=== PATIENT | male | born 1990 | race Caucasian/White ===

== ENCOUNTER 2017-08-15 13:29 | Emergency (ER) | payer BC, OTHER ==
[~2017-08-15] VITALS: Ht 172.7 cm; Wt 87.1 kg
[~2017-08-15 13:29] MED LIST: ALBU1AER9 INH; INSDGI SQ; NVLGI SQ
[2017-08-15 13:43] VITALS: TEMP 37; Ht 172.7 cm; Wt 87.1 kg
[2017-08-15] MEDS ORDERED: ONDANSETRON INJ 2 MG/ML 2 ML VIAL IV STA (13:51)
[2017-08-15] MEDS ORDERED: SODIUM CHLORIDE 0.9% 1000ML 1,000 ML IV STA ×2 (13:51→14:43)
--- NOTE | 2017-08-15 13:53 | EMERGENCY ROOM VISIT NOTE ---
History Report prepared by Danielibtrena: Kirsten Mckeon Under the Supervision of: Dr. Ezequiel Bourne M.D. First contact with patient: 13:46 Chief Complaint: VOMITING Stated Complaint: NAUSEA,VOMITING SINCE 4AM,TYPE 1 DIABETIC History of Present Illness The patient is a 27 year old male who presents to the Emergency Room with complaints of persistent vomiting since 0400 this morning. He states he cannot keep water down and is worried he may be dehydrated. The patient is a type 1 diabetic and states his sugars have been pretty stable recently. He also complains of diarrhea. There has been no blood in his stool. He has experienced no urinary symptoms. Source of History: patient Onset: 0 this morning Position: other (global) Timing: other (persistent) Associated Symptoms: + diarrhea, No hematochezia, No urinary symptoms Review of Systems See HPI for pertinent positives & negatives. A total of 10 systems reviewed and were otherwise negative. Past Medical & Surgical Medical Problems: (1) Diabetes mellitus type 1 Social History Smoking Status: Former Smoker Alcohol Use: none Drug Use: none Marital Status: single, in relationship Housing Status: lives with significant other Occupation Status: employed Current/Historical Medications Scheduled Insulin Lispro (Human) (Humalog Kwikpen), 70 UNITS SC DAILY Ondasetron Odt (Zofran Odt), 4-8 MG SL Q6H Allergies Coded Allergies: No Known Allergies (Unverified , 08/15/17) Physical Exam Vital Signs Date Time Temp Pulse Resp B/P (MAP) Pulse Ox O2 Delivery O2 Flow Rate FiO2 08/15/17 16:35 100 20 116/63 96 08/15/17 14:45 92 20 129/87 97 Room Air 08/15/17 13:43 37.0 100 20 134/81 98 Room Air Physical Exam GENERAL: Patient is nauseous appearing and in minimal distress. HEENT: No acute trauma, normocephalic atraumatic, mucous membranes are dry, no nasal congestion, no scleral icterus. NECK: No stridor, no adenopathy, no meningismus, trachea is midline. LUNGS: No dyspnea. Clear to auscultation and equal bilaterally. No wheeze, no rhonchi. HEART: Regular rate and rhythm. No murmurs, rubs, gallops appreciated. ABDOMEN: Soft, nontender, bowel sounds positive, no masses appreciated, no peritonitis. BACK: No midline tenderness, no CVA tenderness EXTREMITIES: Normal motion all extremities, no cyanosis, no edema. NEUROLOGIC: Alert and oriented, no acute motor or sensory deficits, no focal weakness, cranial nerves grossly intact. SKIN: No rash, no jaundice, no diaphoresis. Medical Decision & Procedures Laboratory Results 08/15/17 14:00 Red Blood Count 5.23, Mean Corpuscular Volume 88.0, Mean Corpuscular Hemoglobin 32.3, Mean Corpuscular Hemoglobin Concent 36.7, Mean Platelet Volume 9.3, Neutrophils (%) (Auto) 89.6, Lymphocytes (%) (Auto) 3.5, Monocytes (%) (Auto) 5.9, Eosinophils (%) (Auto) 0.8, Basophils (%) (Auto) 0.1, Neutrophils # (Auto) 6.35, Lymphocytes # (Auto) 0.25, Monocytes # (Auto) 0.42, Eosinophils # (Auto) 0.06, Basophils # (Auto) 0.01 08/15/17 14:00 Test 08/15/17 13:44 08/15/17 14:00 08/15/17 15:30 Bedside Glucose 168 mg/dl (70-99) White Blood Count 7.10 K/uL (4.8-10.8) Red Blood Count 5.23 M/uL (4.7-6.1) Hemoglobin 16.9 g/dL (14.0-18.0) Hematocrit 46.0 % (42-52) Mean Corpuscular Volume 88.0 fL (80-100) Mean Corpuscular Hemoglobin 32.3 pg (25-34) Mean Corpuscular Hemoglobin Concent 36.7 g/dl (32-36) Platelet Count 191 K/uL (130-400) Mean Platelet Volume 9.3 fL (7.4-10.4) Neutrophils (%) (Auto) 89.6 % Lymphocytes (%) (Auto) 3.5 % Monocytes (%) (Auto) 5.9 % Eosinophils (%) (Auto) 0.8 % Basophils (%) (Auto) 0.1 % Neutrophils # (Auto) 6.35 K/uL (1.4-6.5) Lymphocytes # (Auto) 0.25 K/uL (1.2-3.4) Monocytes # (Auto) 0.42 K/uL (0.11-0.59) Eosinophils # (Auto) 0.06 K/uL (0-0.5) Basophils # (Auto) 0.01 K/uL (0-0.2) RDW Standard Deviation 37.9 fL (36.4-46.3) RDW Coefficient of Variation 11.8 % (11.5-14.5) Immature Granulocyte % (Auto) 0.1 % Immature Granulocyte # (Auto) 0.01 K/uL (0.00-0.02) Anion Gap 7.0 mmol/L (3-11) Est Creatinine Clear Calc Drug Dose 130.0 ml/min Estimated GFR () 133.3 Estimated GFR (Non- 115.0 BUN/Creatinine Ratio 19.5 (10-20) Calcium Level 8.6 mg/dl (8.5-10.1) Total Bilirubin 2.1 mg/dl (0.2-1) Aspartate Amino Transf (AST/SGOT) 23 U/L (15-37) Alanine Aminotransferase (ALT/SGPT) 24 U/L (12-78) Alkaline Phosphatase 82 U/L (45-117) Total Protein 7.7 gm/dl (6.4-8.2) Albumin 4.0 gm/dl (3.4-5.0) Globulin 3.7 gm/dl (2.5-4.0) Albumin/Globulin Ratio 1.1 (0.9-2) Lipase 57 U/L (73-393) Urine Color YELLOW Urine Appearance CLEAR (CLEAR) Urine pH 5.0 (4.5-7.5) Urine Specific [place] 1.030 (1.000-1.030) Urine Protein NEG (NEG) Urine Glucose (UA) 2+ (NEG) Urine Ketones 1+ (NEG) Urine Occult Blood NEG (NEG) Urine Nitrite NEG (NEG) Urine Bilirubin NEG (NEG) Urine Urobilinogen NEG (NEG) Urine Leukocyte Esterase NEG (NEG) Urine WBC (Auto) 1-5 /hpf (0-5) Urine RBC (Auto) 0-4 /hpf (0-4) Urine Hyaline Casts (Auto) 1-5 /lpf (0-5) Urine Epithelial Cells (Auto) 10-20 /lpf (0-5) Urine Bacteria (Auto) NEG (NEG) Laboratory results as reviewed by me. Medications Administered Medications (Trade) Dose Ordered Sig/Pamela Route Start Time Stop Time Status Last Admin Dose Admin Sodium Chloride 1,000 ml @ 999 mls/hr Q1H1M STAT IV 08/15/17 13:51 08/15/17 14:51 DC 08/15/17 13:56 999 MLS/HR Ondansetron HCl (Zofran Inj) 4 mg NOW STAT IV 08/15/17 13:51 08/15/17 13:52 DC 08/15/17 14:03 4 MG Sodium Chloride 1,000 ml @ 999 mls/hr Q1H1M STAT IV 08/15/17 14:43 08/15/17 15:43 DC 08/15/17 14:44 999 MLS/HR Insulin Human Regular (novoLIN-R U-100 PER UNIT) 6 units NOW STAT IV 08/15/17 16:22 08/15/17 16:23 DC 08/15/17 16:22 6 UNITS Ondansetron HCl (ZOFRAN ODT 4MG Home Pack) 1 homepack UD ONCE PO 08/15/17 16:30 08/15/17 16:31 DC 08/15/17 16:30 1 HOMEPACK ED Course 1348: The patient was evaluated in room B4. A complete history and physical exam was performed. 1450: I reevaluated the patient. He states he hasn't been able to urinate yet. 1608: I reevaluated the patient. He feels much better and is comfortable going home. We will recheck his BSG. 1615: Nursing informed me the patients BSG is 258. 1622: I reevaluated the patient. He agrees with getting Insulin here in the ED. He will check his sugars at home. We discussed at length symptoms that would require a return to the ED and he states he feels comfortable monitoring his symptoms. Medical Decision Differential: Gastroenteritis, Food Borne, Esophageal Perforation, , Electrolyte Abnormality, Dehydration, Intraabdominal Infection, UTI/ Pyelonephritis, Bowel Obstruction, Biliary Pathology, amongst other pathology entertained. 27 yr old male with DMI arrives for evaluation of vomiting throughout day. Dehydrated but otherwise looking OK. Given 2 L NSS and feeling much better with this and IV zofran. Glucose creeping up as expected but he does not have evidence of DKA at this time. Ketones +1 in urine which I think is more dehydration than DKA. He is breathing comfortably and in no distress. Wishes DC which seems reasonable. Exam benign. Mild bili up which is likely from vomiting as no abdominal TTP. Consistent with gastroenteritis given diarrhea. Will monitor sugars very closely at home and aware of symptoms requiring RTED. Stable throughout ED stay. Significant other with him and aware as well. Medication Reconcilliation Current Medication List: was personally reviewed by me Blood Pressure Screening Patient's blood pressure: Normal blood pressure Blood pressure disposition: Did not require urgent referral Impression Primary Impression: Nausea, vomiting, and diarrhea Additional Impressions: Dehydration Hyperglycemia Scribe Attestation The scribe's documentation has been prepared under my direction and personally reviewed by me in its entirety. I confirm that the note above accurately reflects all work, treatment, procedures, and medical decision making performed by me. Departure Information Dispostion Home / Self-Care Prescriptions Ondasetron Odt (ZOFRAN ODT) 4 Mg Tab 4-8 MG SL Q6H for Nausea, #12 TAB Prov: Ezequiel Bourne M.D. 08/15/17 Referrals Dave Doyle III, M.D. (PCP) Patient Instructions ED Diet Vomiting Diarrhea, My [facility] Additional Instructions Monitor your sugars closely. If unable to control or other concerns return to ED for evaluation. Problem Qualifiers
[2017-08-15 14:09] LABS: BASO % 0.1 %; BASO ABS # 0.01 K/uL (0-0.2); EOS % 0.8 %; EOS ABS # 0.06 K/uL (0-0.5); HEMOGLOBIN 16.9 g/dL (14.0-18.0); IG# 0.01 K/uL (0.00-0.02); LYMPH % 3.5 %; LYMPH ABS # 0.25 K/uL (1.2-3.4); MEAN CORPUSCULAR HEMOGLOBIN 32.3 pg (25-34); MEAN CORPUSCULAR HGB CONC 36.7 g/dl (32-36); MEAN PLATELET VOLUME 9.3 fL (7.4-10.4); MONO % 5.9 %; MONO ABS # 0.42 K/uL (0.11-0.59); NEUT % 89.6 %; NEUT ABS # 6.35 K/uL (1.4-6.5); PLATELET COUNT 191 K/uL (130-400); RED CELL DISTRIBUTION WIDTH CV 11.8 % (11.5-14.5); RED CELL DISTRIBUTION WIDTH SD 37.9 fL (36.4-46.3)
[2017-08-15 14:33] LABS: CALCIUM 8.6 mg/dl (8.5-10.1); CREATININE 0.9 mg/dl (0.60-1.40); POTASSIUM 3.9 mmol/L (3.5-5.1)
[2017-08-15 14:36] LABS: TOTAL PROTEIN 7.7 gm/dl (6.4-8.2)
[2017-08-15] MEDS ORDERED: INSU100I2 SC (15:14)
[2017-08-15] MEDS ORDERED: NovoLIN-R INSULIN PER UNIT CHARGE IV STA (16:22)
[2017-08-15] MEDS ORDERED: ONDA4TAB10 SL (16:24)
[2017-08-15] MEDS ORDERED: ONDANSETRON HOME PACK 4MG OD TAB PO ONE (16:30)
[2017-08-15 16:35] VITALS: BP 116/63; PULSE 100; O2SAT 96
== END 2017-08-15 16:37 | disposition home or self-care (01) ==
LOC: C.EDB 13:32
DX: R11.2 Nausea with vomiting, unspecified (principal); R19.7 Diarrhea, unspecified; E86.0 Dehydration; E10.65 Type 1 diabetes mellitus with hyperglycemia; Z87.891 Personal history of nicotine dependence

== ENCOUNTER 2023-01-10 18:02 | Observation (INO) ==
[2023-01-10 18:55] LABS: Basophils # (auto) 0.02 K/uL (0-0.2); Basophils % (auto) 0.2 %; Eosinophils # (auto) 0.08 K/uL (0-0.50); Eosinophils % (auto) 0.9 %; Hematocrit (blood only) 44.6 % (42.0-52.0); Immature Granulocytes # (auto) 0.03 K/uL (0.01-0.20); Immature Granulocytes % (auto) 0.3 %; Lymphocytes # (auto) 0.96 K/uL (1.2-3.4); Mean Corpuscular Hemoglobin 31.6 pg (25.0-34.0); Mean Corpuscular Hgb Conc 35.9 g/dL (32.0-36.0); Mean Platelet Volume 8.7 fL (9.4-12.4); Monocytes # (auto) 0.42 K/uL (0.11-0.59); Monocytes % (auto) 4.8 %; Neutrophils # (auto) 7.22 K/uL (1.40-6.50); Neutrophils % (auto) 82.8 %; Platelet Count 240 K/uL (130-400); RDW Coefficient of Variation 11.7 % (11.5-14.5); RDW Standard Deviation 37.6 fL (36.4-46.3); Red Blood Count 5.07 M/uL (4.70-6.10); White Blood Count 8.73 K/ul (4.8-10.8)
[2023-01-10] MEDS ORDERED: SODIUM CHLORIDE 0.9% 1000ML 1,000 ML IV SCH (19:00)
[2023-01-10 19:09] LABS: Albumin Level 4.9 gm/dl (3.4-5.0); Bilirubin,Total 1.9 mg/dl (0.2-1.0); Calcium 9.8 mg/dl (8.6-10.3); Potassium 4.4 mmol/L (3.5-5.1)
[2023-01-10 19:15] LABS: Albumin Globulin Ratio 1.9 (0.9-2); BUN Creatinine Ratio 17.3 (10-20); Creatinine Clr Calc Pharmacy 149.2 ml/min; Est GFR (African American) 138.7 ml/min; Est GFR (Non-African American) 119.7 ml/min; Globulin 2.6 gm/dl (2.5-4.0); Total Protein 7.5 gm/dl (6.0-8.3)
[2023-01-10] MEDS ORDERED: ONDANSETRON INJ 2 MG/ML 2 ML VIAL IV STA (19:31)
--- NOTE | 2023-01-10 19:34 | Emergency Department Note ---
Impression & Plan Lower abdominal pain, Vomiting, Enteritis ED Provider Note NAME: JULIANO TURK AGE: 32 SEX: M : 1990 ARRIVES VIA: Walk-In INFORMANT: [Patient] ED PROVIDER(S): [Donato Torres MD] CHIEF COMPLAINT: Abdominal pain HISTORY OF PRESENT ILLNESS: The patient is a 32-year-old male who states that he felt fine yesterday. This morning after eating he began having some mid abdominal pain. He has had pain now for 9-1/2 hours. The pain has been constant and does move somewhat into the back. It is not really a one-sided pain. The patient has not had urinary difficulty, no diarrhea. He did vomit several times and his pain seems somewhat better since vomiting. There has been no bad food eaten, no sick contacts. He has not had a fever, cough or congestion. PMHx/PSHx: See Below SOCIAL HISTORY: See Below. PHYSICAL EXAM: GENERAL: Patient is in no acute distress. HEENT: No acute trauma, normocephalic atraumatic, mucous membranes moist, no nasal congestion. NECK: No stridor, no adenopathy, no meningismus, trachea is midline. LUNGS: Clear to auscultation bilaterally, no wheeze, no rhonchi, breath sounds equal. HEART: Without murmurs gallops or rubs, regular rate and rhythm. ABDOMEN: Soft, bowel sounds are somewhat hyperactive. He does have tenderness in the lower abdomen/pelvis bilaterally, slightly worse on the right. EXTREMITIES: No cyanosis or edema, full range of motion of all the joints without pain or difficulty, no signs for acute trauma. NEUROLOGIC: Oriented x 3, no acute motor or sensory deficits, no focal weakness. SKIN: No rash, no jaundice, no diaphoresis. Groin: Circumcised, no obvious hernia by my exam. DIFFERENTIAL DIAGNOSIS: Foodborne or viral illness, diverticulitis or appendicitis, bowel obstruction, UTI, renal colic, among others. EMERGENCY DEPARTMENT COURSE/PROCEDURES: Prior/Outside records reviewed: None. MEDICAL DECISION MAKING: There is no leukocytosis or concerning anemia. There is a normal platelet count. No renal failure or significant electrolyte abnormality. Bilirubin was elevated at 1.9. The patient carries a history of a higher bilirubin value and today's value is at baseline. No other worrisome liver enzyme elevation seen. No pancreatitis. Urinalysis showed some ketones, no infection. Abdominal and pelvis CT shows enteritis versus and/or a partial small bowel obstruction. No appendicitis or acute surgical process per CT imaging. On my exam, there was no peritonitis. The patient was not toxic or febrile. The patient was given IV Pepcid, IV Toradol, IV Zofran and IV saline. He is fairly comfortable. I did speak with general surgery, no emergent surgical intervention is required. Hospitalization and medical management was felt warranted for now. I did speak with the patient and case management, patient will be kept n.p.o. He will be reassessed throughout the evening and morning. Hopefully, he improves spontaneously. If things progress to a full bowel obstruction, an NG tube may be necessary. DISPOSITION: Patient's presentation and findings warrant a hospital stay. Past Med/Surg History Medical History Right upper extremity numbness Type 1 diabetes Diagnosed age 12 Surgical History S/P wisdom tooth extraction Family History Grandfather (Maternal) Myocardial infarction Grandfather (Paternal) Myocardial infarction Diabetes Grandmother (Maternal) Ovarian cancer Uncle Prostate cancer Diabetes Mother Depression Hypertension Kidney stones Fibromyalgia Sister Depression Father Hypertension Grandmother (Paternal) Diabetes Denies family history of Breast cancer Colorectal cancer Social History Smoking Status: Former smoker Tobacco Type: Cigarettes Age Started Using Tobacco: 14; Cigarettes Per Day: 1-2 A WEEK; Second Hand Exposure: Yes; Do You Dip or Chew Tobacco: No; Hx Alcohol Use: No Hx Substance Use: Yes Prescribed Medications: Marijuana Preferred Language: Occitan Communication Ability: Effective Visual Impairment: No Limitations Hearing Ability: Normal marital status: Single Current Living Situation: Other Current Living Situation Comment: W/GIRLFRIEND current occupational status: employed 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 [employer] Feels Safe at Home: Yes Childhood Exposure to Second-Hand Smoke: Yes Diet: regular Dental Care, Regularly: No Physical Activity Frequency: Does not Exercise Seatbelt Use: always Sunscreen Use: No Allergies Allergies Allergy/AdvReac Type Severity Reaction Status Date / Time No Known Allergies Allergy Verified 01/10/23 19:23 Home Meds Previous Rx's Medication Instructions Recorded acetone (urine) test (Ketone Urine #50 ea 04/02/20 Test strips) lancets 30 gauge (OneTouch Delica #100 ea 03/25/21 Lancets) One Touch Verio Glucometer #1 ea 10/15/21 insulin glargine 100 unit/mL (3 25 unit (0.25 mL) subcut BID #45 mL 05/20/22 mL) subcutaneous pen (Lantus Solostar U-100 Insulin) insulin lispro 100 unit/mL See Rx Instructions .Route 07/30/22 subcutaneous pen (Humalog KwikPen .COMPLEX #75 mL (U-100) Insulin) pen needle, diabetic 32 gauge x #100 ea 08/04/2207/01" (BD Ultra-Fine Micro Pen Needle) blood sugar diagnostic (OneTouch #300 strips 09/17/22 Verio test strips) Results & Data (ED) Vital Signs Vital Signs - 24 hr 01/10/23 18:05 01/10/23 21:45 Temperature 36.8 C Temperature Source Temporal Artery Scan Pulse Rate 80 70 Respiratory Rate 18 Respiratory Effort / Characteristics Non-Labored Respiratory Depth Normal Blood Pressure 146/90 H Blood Pressure Mean 108 Pulse Oximetry 98 Oxygen Delivery Method Room Air Sepsis Recent Fever Within 48 Hours No Sepsis New/Unexplained Change in Mental Status No Sepsis Action Taken by Nursing No Action Required Home Medications Current Medication List: was personally reviewed by me Laboratory Data Attestation: I reviewed the patient's lab results. 01/10/23 18:44 01/10/23 18:44 Lab Results 01/10/23 01/10/23 01/10/23 Range/Units 18:44 18:44 19:50 WBC 8.73 (4.8-10.8) K/ul RBC 5.07 (4.70-6.10) M/uL Hgb 16.0 (14.0-18.0) g/dl Hct 44.6 (42.0-52.0) % MCV 88.0 (80.0-100.0) fL MCH 31.6 (25.0-34.0) pg MCHC 35.9 (32.0-36.0) g/dL RDW Std Deviation 37.6 (36.4-46.3) fL RDW Coeff of Abby 11.7 (11.5-14.5) % Plt Count 240 (130-400) K/uL MPV 8.7 L (9.4-12.4) fL Immature Gran % (Auto) 0.3 % Neut % (Auto) 82.8 % Lymph % (Auto) 11.0 % [place] % (Auto) 4.8 % Eos % (Auto) 0.9 % Baso % (Auto) 0.2 % Neut # (Auto) 7.22 H (1.40-6.50) K/uL Lymph # (Auto) 0.96 L (1.2-3.4) K/uL [place] # (Auto) 0.42 (0.11-0.59) K/uL Eos # (Auto) 0.08 (0-0.50) K/uL Baso # (Auto) 0.02 (0-0.2) K/uL Immature Gran # (Auto) 0.03 (0.01-0.20) K/uL Sodium 139 (136-145) mmol/L Potassium 4.4 (3.5-5.1) mmol/L Chloride 103 (98-107) mmol/L Carbon Dioxide 30 (21-32) mmol/L Anion Gap 6 (3-11) BUN 13 (6-23) mg/dl Creatinine 0.75 (0.6-1.4) mg/dl Est Cr Clr Drug Dosing 149.2 ml/min Est GFR ( Amer) 138.7 ml/min Est GFR (Non-Af Amer) 119.7 ml/min BUN/Creatinine Ratio 17.3 (10-20) Glucose 65 L (70-99(Fasting)) mg/dl Calcium 9.8 (8.6-10.3) mg/dl Total Bilirubin 1.9 H (0.2-1.0) mg/dl AST 20 (13-39) U/L ALT 13 (7-52) U/L Alkaline Phosphatase 64 (34-104) U/L Total Protein 7.5 (6.0-8.3) gm/dl Albumin 4.9 (3.4-5.0) gm/dl Globulin 2.6 (2.5-4.0) gm/dl Albumin/Globulin Ratio 1.9 (0.9-2) Lipase 22 (11-82) U/L Urine Color Dark Yellow Urine Appearance Turbid A (Clear) Urine pH 7.5 (4.5-7.5) Ur Specific [place] 1.028 (1.000-1.030) Urine Protein Trace H (Negative) Urine Glucose (UA) Negative (Negative) Urine Ketones Trace H (Negative) Urine Blood Negative (Negative) Urine Nitrite Negative (Negative) Urine Bilirubin Negative (Negative) Urine Urobilinogen Negative (Negative) Ur Leukocyte Esterase Negative (Negative) Urine WBC (Auto) 1-5 (0-5) /hpf Urine RBC (Auto) 0-4 (0-4) /hpf U Hyaline Cast (Auto) 1-5 (0-5) /lpf U Epithel Cells (Auto) 10-20 H (0-5) /lpf Urine Bacteria (Auto) Negative (Negative) Ur Renal Epithelial Cell Not Reportable Administered Medications Sodium Chloride (Nss 1000ml) 500 mls @ 999 mls/hr IV .Q31M ONE Stop: 01/10/23 22:00 Last Admin: 01/10/23 21:42 Dose: 999 mls/hr Documented By: ESTHER Discontinued Medications Sodium Chloride (Nss 1000ml) 1,000 mls @ 999 mls/hr IV .Q1H1M YOHANNES Stop: 01/10/23 20:00 Last Infusion: 01/10/23 20:09 Dose: 0 mls/hr Documented By: Admin: 01/10/23 18:50 Dose: 999 mls/hr Documented By: GUILLE Famotidine (Pepcid 20mg Iv Push) 20 mg in 5 mls @ 2.5 mls/min IV NOW STA Stop: 01/10/23 21:32 Last Admin: 01/10/23 21:42 Dose: 2.5 mls/min Documented By: ESTHER Ioversol (Optiray 320 100ml) 93 ml IV ONCE ONE Stop: 01/10/23 20:11 Last Admin: 01/10/23 20:01 Dose: 93 ml Documented By: VALARIE Ketorolac Tromethamine (Ketorolac Tromethamine 15 Mg/Ml Vial) 15 mg IV NOW STA Stop: 01/10/23 21:32 Last Admin: 01/10/23 21:42 Dose: 15 mg Documented By: ESTHER Ondansetron HCl (Ondansetron Inj 2 Mg/Ml 2 Ml Vial) 4 mg IV NOW STA Stop: 01/10/23 19:32 Last Admin: 01/10/23 19:42 Dose: 4 mg Documented By: BCN Imaging Data Radiologist's Impression: Abdomen/Pelvis CT 01/10/23 19:31 Exam(s): CT ABDOMEN + PELVIS With Contrast IV Amt: 93 ml EXAM: CT Abdomen and Pelvis With Intravenous Contrast CLINICAL HISTORY: Reason for exam: low abd pain, vomiting. TECHNIQUE: Axial computed tomography images of the abdomen and pelvis with intravenous contrast. CTDI is 25.58 mGy and DLP is 1294.16 mGy-cm. Automated exposure control was utilized for the study. A dose lowering technique was utilized adhering to the principles of ALARA. CONTRAST: Patient received 93 ml [id number] of IV contrast COMPARISON: No relevant prior studies available. FINDINGS: Lung bases: Unremarkable. No mass. No consolidation. ABDOMEN: Liver: Unremarkable. No mass. Gallbladder and bile ducts: Unremarkable. No calcified stones. No ductal dilation. Pancreas: Unremarkable. No mass. No ductal dilation. Spleen: Unremarkable. No splenomegaly. Adrenals: Unremarkable. No mass. Kidneys and ureters: 11 mm RIGHT mid pole renal cyst. No hydronephrosis. Stomach and bowel: Mild fluid-filled small bowel distended up to 2.8 cm, concerning for mild enteritis/ileus. Early/partial small bowel destruction cannot be excluded, consider repeat exam if symptoms worsen or persist. PELVIS: Appendix: No findings to suggest acute appendicitis. Bladder: Unremarkable. No mass. Reproductive: Unremarkable as visualized. ABDOMEN and PELVIS: Intraperitoneal space: Unremarkable. No free air. No significant fluid collection. Bones/joints: No acute fracture. No dislocation. Soft tissues: Unremarkable. Vasculature: Unremarkable. No abdominal aortic aneurysm. Lymph nodes: Unremarkable. No enlarged lymph nodes. IMPRESSION: Mild fluid-filled small bowel distended up to 2.8 cm, concerning for mild enteritis/ileus. Early/partial small bowel destruction cannot be excluded, consider repeat exam if symptoms worsen or persist. Electronically signed by: Ha Cortez MD 01/10/23 21:15 PM Discharge Plan Visit Data Chief Complaint: Abdominal Pain Stated Complaint: ABDOMINAL PAIN ED Provider: Donato Torres Discharge Problem: Lower abdominal pain, Vomiting, Enteritis Patient Disposition: Admitted As Inpatient Condition: Good Forms Stand Alone Forms: My [facility] Prescriptions Prescriptions: No Action (DME) Ketone Urine Test Strip See Rx Instructions .ROUTE .MEDSUPPLY Qty: 50 5RF Rx Instructions: As directed (DME) lancets [OneTouch Delica Lancets] 30 gauge misc See Rx Instructions .Route Qty: 100 1RF Rx Instructions: test 3 times daily or as directed (DME) One Touch Verio Glucometer See Rx Instructions .Route .MEDSUPPLY Qty: 1 0RF Rx Instructions: Test 3 times daily insulin glargine [Lantus Solostar U-100 Insulin] 100 unit/mL (3 mL) insulin pen 25 unit subcut BID Qty: 45 1RF insulin lispro [Humalog KwikPen Insulin] 100 unit/mL insulin pen See Rx Instructions .ROUTE .COMPLEX MDD 70 U Qty: 75 1RF Dose Instruction: INJECT 70 UNITS (0.7 ML) SUBCUTANEOUSLY DAILY Rx Instructions: INJECT 70 UNITS (0.7 ML) SUBCUTANEOUSLY DAILY (Divided doses based on CHO Ratio and CF before meals) (DME) pen needle, diabetic [BD Ultra-Fine Micro Pen Needle] 32 gauge x 1/4" needle See Rx Instructions .Route Qty: 100 1RF Rx Instructions: USE TO ADMINISTER INSULIN 4 X DAILY OR DIRECTED (DME) OneTouch Verio test strips Strip See Rx Instructions .ROUTE .COMPLEX Qty: 300 12RF Dose Instruction: FOR TYPE I DIABETES TEST 3 TIMES PER DAY. Rx Instructions: FOR TYPE I DIABETES TEST 3 TIMES PER DAY. Referrals Referrals: Tonny Bell, [Primary Care Provider] -
[2023-01-10] MEDS ORDERED: OPTIRAY 320 100ml IV ONE (20:10)
[2023-01-10 20:18] LABS: Appearance Urine Turbid (Clear); Bacteria Urine Automated Negative (Negative); Bilirubin Urine Negative (Negative); Blood Urine Negative (Negative); Color Urine Dark Yellow; Glucose Urine UA Negative (Negative); Ketones Urine Trace (Negative); Leukocyte Esterase Urine Negative (Negative); Nitrite Urine Negative (Negative); RBC Urine Automated 0-4 /hpf (0-4); Specific Gravity Urine 1.028 (1.000-1.030); Urobilinogen Urine Negative (Negative); pH Urine 7.5 (4.5-7.5)
[2023-01-10 20:22] LABS: Protein Urine Trace (Negative)
--- NOTE | 2023-01-10 21:16 | CT Scan Report ---
Exam(s): CT ABDOMEN + PELVIS With Contrast IV Amt: 93 ml [id number] EXAM: CT Abdomen and Pelvis With Intravenous Contrast CLINICAL HISTORY: Reason for exam: low abd pain, vomiting. TECHNIQUE: Axial computed tomography images of the abdomen and pelvis with intravenous contrast. CTDI is 25.58 mGy and DLP is 1294.16 mGy-cm. Automated exposure control was utilized for the study. A dose lowering technique was utilized adhering to the principles of ALARA. CONTRAST: Patient received 93 ml [id number] of IV contrast COMPARISON: No relevant prior studies available. FINDINGS: Lung bases: Unremarkable. No mass. No consolidation. ABDOMEN: Liver: Unremarkable. No mass. Gallbladder and bile ducts: Unremarkable. No calcified stones. No ductal dilation. Pancreas: Unremarkable. No mass. No ductal dilation. Spleen: Unremarkable. No splenomegaly. Adrenals: Unremarkable. No mass. Kidneys and ureters: 11 mm RIGHT mid pole renal cyst. No hydronephrosis. Stomach and bowel: Mild fluid-filled small bowel distended up to 2.8 cm, concerning for mild enteritis/ileus. Early/partial small bowel destruction cannot be excluded, consider repeat exam if symptoms worsen or persist. PELVIS: Appendix: No findings to suggest acute appendicitis. Bladder: Unremarkable. No mass. Reproductive: Unremarkable as visualized. ABDOMEN and PELVIS: Intraperitoneal space: Unremarkable. No free air. No significant fluid collection. Bones/joints: No acute fracture. No dislocation. Soft tissues: Unremarkable. Vasculature: Unremarkable. No abdominal aortic aneurysm. Lymph nodes: Unremarkable. No enlarged lymph nodes. IMPRESSION: Mild fluid-filled small bowel distended up to 2.8 cm, concerning for mild enteritis/ileus. Early/partial small bowel destruction cannot be excluded, consider repeat exam if symptoms worsen or persist. Electronically signed by: Ha Cortez MD 01/10/23 21:15 PM
[2023-01-10] MEDS ORDERED: SODIUM CHLORIDE 0.9% 1000ML 500 ML IV ONE (21:30)
[2023-01-10] MEDS ORDERED: FAMOTIDINE 20MG IV PUSH 20 MG/5 ML SYR IV STA (21:31)
[2023-01-10] MEDS ORDERED: KETOROLAC TROMETHAMINE 15 MG/ML VIAL IV STA (21:31)
--- NOTE | 2023-01-10 22:10 | History & Physical Report ---
Date of Service January 10, 2023 Assessment & Plan (1) Lower abdominal pain: Plan: 32yo male with history of well controlled DM presenting with one day of abdominal pain and nausea. No prior abdominal surgeries. He is afebrile, HD stable and non-toxic in appearance. Labs are largely unremarkable to include normal WBC count of 8.73. Chronic elevation of Tbili=1.9 (near baseline) otherwise normal LFTs. CT of the abomen as above with possible SBO vs enteritis. -Admit to medical -Keep NPO -LR at 125mL/hr x 2 liters -Zofran PRN nausea -Morphine as needed for pain -Appreciate General Surgery assistance (2) Type 1 diabetes: Plan: Overall well controlled. Last HgbA1C from 11/14/21=6.9. Patient is compliant with Glargine 25u BID and ISS. -Decrease Glargine to 12u BID while NPO -Novolog sliding scale with CF 25, CR 5 -Goal blood sugar 110 - 140 Of note, patient states that he has an episodes 3-4 times monthly which he wakes up feeling nauseated and has to vomit. After he vomits he feels better and is able to go back to sleep. Uncertain if its related to specific type of food or timing of meals. ?GERD vs Gastroparesis to be considered History of Present Illness Chief Complaint: abdominal pain Primary Care Provider: DO Travis Madrid Teja is a 32yo male with well controlled DM-I presenting with abdominal pain. Patient woken this morning and developed fairly severe abdominal pain after having some cereal for breakfast. He had some nausea and non-bloody/non-bilious emesis as well which made his abdominal pain feel slightly better. The pain persisted throughout the day, coming intermittently. He passed some gas this morning but does not recall if he has passed gas since. He had a normal bowel movement this AM. Patient denies fever, chills, chest pain, cough, SOB. Denies diarrhea. Denies urinary complaints. No dietary changes. No sick contacts or contacts with similar symptoms. No additional complaints at this time. In the ER the patient is afebrile, HD stable, NAD. Resting comfortably. Abdominal pain slightly improved. He was evaluated by General Surgery for possible SBO. ER Course: Pepcid 20mg Toradol 15mg NSS x 1500mL Zofran Allergies Allergy/AdvReac Type Severity Reaction Status Date / Time No Known Allergies Allergy Verified 01/10/23 19:23 Home Medications Medication Instructions Recorded Confirmed Type acetone (urine) test (Ketone Urine #50 ea 04/02/20 09/15/22 Rx Test strips) lancets 30 gauge (OneTouch Delica #100 ea 03/25/21 09/15/22 Rx Lancets) One Touch Verio Glucometer #1 ea 10/15/21 09/15/22 Rx insulin glargine 100 unit/mL (3 25 unit (0.25 mL) subcut BID #45 mL 05/20/22 01/10/23 Rx mL) subcutaneous pen (Lantus Solostar U-100 Insulin) insulin lispro 100 unit/mL See Rx Instructions .Route 07/30/22 01/10/23 Rx subcutaneous pen (Humalog KwikPen .COMPLEX #75 mL (U-100) Insulin) pen needle, diabetic 32 gauge x #100 ea 08/04/22 09/15/22 Rx 1/4" (BD Ultra-Fine Micro Pen Needle) blood sugar diagnostic (OneTouch #300 strips 09/17/22 Rx Verio test strips) Past Med/Surg History Medical History Right upper extremity numbness Type 1 diabetes Diagnosed age 12 Surgical History S/P wisdom tooth extraction Family History Grandfather (Maternal) Myocardial infarction Grandfather (Paternal) Myocardial infarction Diabetes Grandmother (Maternal) Ovarian cancer Uncle Prostate cancer Diabetes Mother Depression Hypertension Kidney stones Fibromyalgia Sister Depression Father Hypertension Grandmother (Paternal) Diabetes Denies family history of Breast cancer Colorectal cancer Social History Smoking Status: Former smoker Tobacco Type: Cigarettes Age Started Using Tobacco: 14; Cigarettes Per Day: 1-2 A WEEK; Second Hand Exposure: Yes; Do You Dip or Chew Tobacco: No; Hx Alcohol Use: No Hx Substance Use: Yes Prescribed Medications: Marijuana Preferred Language: Lithuanian Communication Ability: Effective Visual Impairment: No Limitations Hearing Ability: Normal marital status: Single Current Living Situation: Other Current Living Situation Comment: W/GIRLFRIEND current occupational status: employed 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 [employer] Feels Safe at Home: Yes Childhood Exposure to Second-Hand Smoke: Yes Diet: regular Dental Care, Regularly: No Physical Activity Frequency: Does not Exercise Seatbelt Use: always Sunscreen Use: No Review of Systems Review of Systems: All systems reviewed & are unremarkable except as noted in HPI & below Physical Exam Physical Exam: General: patient resting comfortably, NAD, non-toxic in appearance, AA&O x 4 Skin: warm, dry, intact, no rashes or lesions HEENT: NC/AT, PERRL, EOMI, anicteric sclera, conjunctiva without injection, external ear normal to inspection and nontender, nares patent, moist mucus membranes, dentition intact, no oropharyngeal lesions, neck supple, trachea midline, no LAD, no thyromegaly, no JVD Heart: +S1/S2, regular, no m/r/g Lungs: equal air entry bilaterally, no rales/rhonchi/wheezes Abd: +BS hypoactive, soft, non-distended, mildly tender with deep palpation, no rebound/guarding/peritonitis, no masses/organomegaly/ascites Ext: warm, 2+ pulses in UE/LE bilaterally, no clubbing/cyanosis or edema Neuro: nonfocal, patient AA&O x 4, speech intact, no facial droop, moving all extremities on command with equal strength 5/5 Results & Data Results & Data Vital Signs (Past 12 Hours) Vital Signs Temp Pulse Resp BP Pulse Ox O2 Del Method 01/10/23 21:45 70 01/10/23 18:05 36.8 C 80 18 146/90 H 98 Room Air Laboratory Results Laboratory Results WBC 8.73 K/ul (4.8-10.8) 01/10/23 18:44 RBC 5.07 M/uL (4.70-6.10) 01/10/23 18:44 Hgb 16.0 g/dl (14.0-18.0) 01/10/23 18:44 Hct 44.6 % (42.0-52.0) 01/10/23 18:44 MCV 88.0 fL (80.0-100.0) 01/10/23 18:44 MCH 31.6 pg (25.0-34.0) 01/10/23 18:44 MCHC 35.9 g/dL (32.0-36.0) 01/10/23 18:44 RDW Std Deviation 37.6 fL (36.4-46.3) 01/10/23 18:44 RDW Coeff of Abby 11.7 % (11.5-14.5) 01/10/23 18:44 Plt Count 240 K/uL (130-400) 01/10/23 18:44 MPV 8.7 fL (9.4-12.4) L 01/10/23 18:44 Immature Gran % (Auto) 0.3 % 01/10/23 18:44 Neut % (Auto) 82.8 % 01/10/23 18:44 Lymph % (Auto) 11.0 % 01/10/23 18:44 [place] % (Auto) 4.8 % 01/10/23 18:44 Eos % (Auto) 0.9 % 01/10/23 18:44 Baso % (Auto) 0.2 % 01/10/23 18:44 Neut # (Auto) 7.22 K/uL (1.40-6.50) H 01/10/23 18:44 Lymph # (Auto) 0.96 K/uL (1.2-3.4) L 01/10/23 18:44 [place] # (Auto) 0.42 K/uL (0.11-0.59) 01/10/23 18:44 Eos # (Auto) 0.08 K/uL (0-0.50) 01/10/23 18:44 Baso # (Auto) 0.02 K/uL (0-0.2) 01/10/23 18:44 Immature Gran # (Auto) 0.03 K/uL (0.01-0.20) 01/10/23 18:44 Sodium 139 mmol/L (136-145) 01/10/23 18:44 Potassium 4.4 mmol/L (3.5-5.1) 01/10/23 18:44 Chloride 103 mmol/L (98-107) 01/10/23 18:44 Carbon Dioxide 30 mmol/L (21-32) 01/10/23 18:44 Anion Gap 6 (3-11) 01/10/23 18:44 BUN 13 mg/dl (6-23) 01/10/23 18:44 Creatinine 0.75 mg/dl (0.6-1.4) 01/10/23 18:44 Est Cr Clr Drug Dosing 149.2 ml/min 01/10/23 18:44 Est GFR ( Amer) 138.7 ml/min 01/10/23 18:44 Est GFR (Non-Af Amer) 119.7 ml/min 01/10/23 18:44 BUN/Creatinine Ratio 17.3 (10-20) 01/10/23 18:44 Glucose 65 mg/dl (70-99(Fasting)) L 01/10/23 18:44 POC Glucose 137 mg/dl (70-99) H 01/10/23 22:07 Calcium 9.8 mg/dl (8.6-10.3) 01/10/23 18:44 Total Bilirubin 1.9 mg/dl (0.2-1.0) H 01/10/23 18:44 AST 20 U/L (13-39) 01/10/23 18:44 ALT 13 U/L (7-52) 01/10/23 18:44 Alkaline Phosphatase 64 U/L (34-104) 01/10/23 18:44 Total Protein 7.5 gm/dl (6.0-8.3) 01/10/23 18:44 Albumin 4.9 gm/dl (3.4-5.0) 01/10/23 18:44 Globulin 2.6 gm/dl (2.5-4.0) 01/10/23 18:44 Albumin/Globulin Ratio 1.9 (0.9-2) 01/10/23 18:44 Lipase 22 U/L (11-82) 01/10/23 18:44 Urine Color Dark Yellow 01/10/23 19:50 Urine Appearance Turbid (Clear) A 01/10/23 19:50 Urine pH 7.5 (4.5-7.5) 01/10/23 19:50 Ur Specific [place] 1.028 (1.000-1.030) 01/10/23 19:50 Urine Protein Trace (Negative) H 01/10/23 19:50 Urine Glucose (UA) Negative (Negative) 01/10/23 19:50 Urine Ketones Trace (Negative) H 01/10/23 19:50 Urine Blood Negative (Negative) 01/10/23 19:50 Urine Nitrite Negative (Negative) 01/10/23 19:50 Urine Bilirubin Negative (Negative) 01/10/23 19:50 Urine Urobilinogen Negative (Negative) 01/10/23 19:50 Ur Leukocyte Esterase Negative (Negative) 01/10/23 19:50 Urine WBC (Auto) 1-5 /hpf (0-5) 01/10/23 19:50 Urine RBC (Auto) 0-4 /hpf (0-4) 01/10/23 19:50 U Hyaline Cast (Auto) 1-5 /lpf (0-5) 01/10/23 19:50 U Epithel Cells (Auto) 10-20 /lpf (0-5) H 01/10/23 19:50 Urine Bacteria (Auto) Negative (Negative) 01/10/23 19:50 Ur Renal Epithelial Cell Not Reportable 01/10/23 19:50 SARS-CoV-2, RNA, NAAT NEGATIVE (NEGATIVE) 01/10/23 22:40 Impressions Abdomen/Pelvis CT 01/10/23 19:31 Exam(s): CT ABDOMEN + PELVIS With Contrast IV Amt: 93 ml [id number] EXAM: CT Abdomen and Pelvis With Intravenous Contrast CLINICAL HISTORY: Reason for exam: low abd pain, vomiting. TECHNIQUE: Axial computed tomography images of the abdomen and pelvis with intravenous contrast. CTDI is 25.58 mGy and DLP is 1294.16 mGy-cm. Automated exposure control was utilized for the study. A dose lowering technique was utilized adhering to the principles of ALARA. CONTRAST: Patient received 93 ml [id number] of IV contrast COMPARISON: No relevant prior studies available. FINDINGS: Lung bases: Unremarkable. No mass. No consolidation. ABDOMEN: Liver: Unremarkable. No mass. Gallbladder and bile ducts: Unremarkable. No calcified stones. No ductal dilation. Pancreas: Unremarkable. No mass. No ductal dilation. Spleen: Unremarkable. No splenomegaly. Adrenals: Unremarkable. No mass. Kidneys and ureters: 11 mm RIGHT mid pole renal cyst. No hydronephrosis. Stomach and bowel: Mild fluid-filled small bowel distended up to 2.8 cm, concerning for mild enteritis/ileus. Early/partial small bowel destruction cannot be excluded, consider repeat exam if symptoms worsen or persist. PELVIS: Appendix: No findings to suggest acute appendicitis. Bladder: Unremarkable. No mass. Reproductive: Unremarkable as visualized. ABDOMEN and PELVIS: Intraperitoneal space: Unremarkable. No free air. No significant fluid collection. Bones/joints: No acute fracture. No dislocation. Soft tissues: Unremarkable. Vasculature: Unremarkable. No abdominal aortic aneurysm. Lymph nodes: Unremarkable. No enlarged lymph nodes. IMPRESSION: Mild fluid-filled small bowel distended up to 2.8 cm, concerning for mild enteritis/ileus. Early/partial small bowel destruction cannot be excluded, consider repeat exam if symptoms worsen or persist. Electronically signed by: Ha Cortez MD 01/10/23 21:15 PM PG Care Time/CCT Total # of Minutes Spent Total Time Spent with Patient: Total time spent is greater than 50% in coordination of care (as documented) at patient's floor/unit and/or counseling patient: Coding Level of Care Code 60981 INT INP/OBS CARE 2/55MIN Diagnoses Lower abdominal pain R10.30 Type 1 diabetes E10.9
--- NOTE | 2023-01-10 22:12 | Surgery Consultation ---
Date of Consultation January 10, 2023 Assessment & Plan (1) Lower abdominal pain: (2) Vomiting: (3) Enteritis: Plan Enteritis vs pSBO. Patient admitted under medical service, as there is no urgent surgical intervention. They will start him on antibiotics, keep NPO. I encouraged ambula tion. Patient does not require NGT at this time, but will continue to monitor and change recommendation if he does not improve. Supervising Physician Co-Signing Physician Notes I have discussed this case with the surgical PA and I agreed with this plan. History of Present Illness History of Present Illness Travis is being seen in consultation for enteritis vs partial SBO. He reports that he woke up feeling great, had a BM, but started developing mid abdominal pain after breakfast. the pain progressively got worse during the day and radiated across his back. he did vomit multiple times which briefly alleviated his discomfort. He has no history of abdominal surgeries. He has PMH of well controlled DM1. VSS, no leukocytosis. Allergies Allergy/AdvReac Type Severity Reaction Status Date / Time No Known Allergies Allergy Verified 01/10/23 19:23 Home Medications Medication Instructions Recorded Confirmed Type acetone (urine) test (Ketone Urine #50 ea 04/02/20 09/15/22 Rx Test strips) lancets 30 gauge (OneTouch Delica #100 ea 03/25/21 09/15/22 Rx Lancets) One Touch Verio Glucometer #1 ea 10/15/21 09/15/22 Rx insulin glargine 100 unit/mL (3 25 unit (0.25 mL) subcut BID #45 mL 05/20/22 01/10/23 Rx mL) subcutaneous pen (Lantus Solostar U-100 Insulin) insulin lispro 100 unit/mL See Rx Instructions .Route 07/30/22 01/10/23 Rx subcutaneous pen (Humalog KwikPen .COMPLEX #75 mL (U-100) Insulin) pen needle, diabetic 32 gauge x #100 ea 08/04/22 09/15/22 Rx 1/4" (BD Ultra-Fine Micro Pen Needle) blood sugar diagnostic (OneTouch #300 strips 09/17/22 Rx Verio test strips) Patient History Medical History Right upper extremity numbness Type 1 diabetes Diagnosed age 12 Surgical History S/P wisdom tooth extraction Family History Grandfather (Maternal) Myocardial infarction Grandfather (Paternal) Myocardial infarction Diabetes Grandmother (Maternal) Ovarian cancer Uncle Prostate cancer Diabetes Mother Depression Hypertension Kidney stones Fibromyalgia Sister Depression Father Hypertension Grandmother (Paternal) Diabetes Denies family history of Breast cancer Colorectal cancer Social History Smoking Status: Never smoker Tobacco Type: Cigarettes Age Started Using Tobacco: 14; Cigarettes Per Day: 1-2 A WEEK; Second Hand Exposure: Yes; Do You Dip or Chew Tobacco: No; Hx Alcohol Use: No Hx Substance Use: Yes Prescribed Medications: Marijuana Last Used Substance: Hours (ago) Preferred Language: Korean Communication Ability: Effective Visual Impairment: No Limitations Hearing Ability: Normal Fish Bin Tender Required: No Beliefs That Will Affect Care: None marital status: Single Current Living Situation: Spouse Current Living Situation Comment: W/GIRLFRIEND current occupational status: employed 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 [employer] Safe at Home: Yes Childhood Exposure to Second-Hand Smoke: Yes Diet: regular Dental Care, Regularly: No Physical Activity Frequency: Does not Exercise Seatbelt Use: always Sunscreen Use: No Assistive Devices: Glasses Review of Systems Review of Systems: All systems reviewed & are unremarkable except as noted in HPI & below Physical Exam Physical Exam: Temp Pulse Resp BP Pulse Ox O2 Del Method 36.8 C 70 18 146/90 H 98 Room Air 01/10/23 18:05 01/10/23 21:45 01/10/23 18:05 01/10/23 18:05 01/10/23 18:05 01/10/23 18:05 Constitutional: WD/WN, vitals as above Eyes: PERRL, conjunctivae normal, anicteric sclerae Respiratory: normal respiratory effort, lungs clear to auscultation Cardiovascular: RRR, no murmur, no edema Gastrointestinal (Abdomen): Inspection/Auscultation: abdomen normal to inspection; abdomen not distended Percussion/Palpation: + abdomen tender (very mild ) and abdomen soft; no guarding Skin: no rashes, warm and dry Psychiatric: A+Ox3, euthymic affect Results & Data Vital Signs (Past 12 Hours) Vital Signs Temp Pulse Resp BP Pulse Ox O2 Del Method 01/10/23 21:45 70 01/10/23 18:05 36.8 C 80 18 146/90 H 98 Room Air Laboratory Results Abnormal lab results 01/10/23 01/10/23 01/10/23 Range/Units 18:44 18:44 19:50 MPV 8.7 L (9.4-12.4) fL Neut # (Auto) 7.22 H (1.40-6.50) K/uL Lymph # (Auto) 0.96 L (1.2-3.4) K/uL Glucose 65 L (70-99(Fasting)) mg/dl Total Bilirubin 1.9 H (0.2-1.0) mg/dl Urine Appearance Turbid A (Clear) Urine Protein Trace H (Negative) Urine Ketones Trace H (Negative) U Epithel Cells (Auto) 10-20 H (0-5) /lpf Diagnostic Findings CT Abd/Pelvis ABDOMEN: Liver: Unremarkable. No mass. Gallbladder and bile ducts: Unremarkable. No calcified stones. No ductal dilation. Pancreas: Unremarkable. No mass. No ductal dilation. Spleen: Unremarkable. No splenomegaly. Adrenals: Unremarkable. No mass. Kidneys and ureters: 11 mm RIGHT mid pole renal cyst. No hydronephrosis. Stomach and bowel: Mild fluid-filled small bowel distended up to 2.8 cm, concerning for mild enteritis/ileus. Early/partial small bowel destruction cannot be excluded, consider repeat exam if symptoms worsen or persist. PELVIS: Appendix: No findings to suggest acute appendicitis. Bladder: Unremarkable. No mass. Reproductive: Unremarkable as visualized. ABDOMEN and PELVIS: Intraperitoneal space: Unremarkable. No free air. No significant fluid collection. Bones/joints: No acute fracture. No dislocation. Soft tissues: Unremarkable. Vasculature: Unremarkable. No abdominal aortic aneurysm. Lymph nodes: Unremarkable. No enlarged lymph nodes. IMPRESSION: Mild fluid-filled small bowel distended up to 2.8 cm, concerning for mild enteritis/ileus. Early/partial small bowel destruction cannot be excluded, consider repeat exam if symptoms worsen or persist. PG Care Time/CCT Total # of Minutes Spent Total Time Spent with Patient: Total time spent is greater than 50% in coordination of care (as documented) at patient's floor/unit and/or counseling patient: Coding Level of Care Code 07613 OFFICE CONSULT LVL Diagnoses Lower abdominal pain R10.30 Vomiting R11.2 Nausea presence: with nausea Vomiting type: unspecified Enteritis K52.9 (2) Vomiting Nausea presence: with nausea Vomiting type: unspecified Qualified Code(s): R11.2 - Nausea with vomiting, unspecified
[2023-01-11] MEDS: LACTATED RINGER'S 1,000 ML IV SCH ×2 (01:10→09:05)
[2023-01-11] MEDS ORDERED: MoRPHine SULFATE 2 MG/ML CARP IV PRN (01:10)
[2023-01-11] MEDS ORDERED: MoRPHine SULFATE 4 MG/ML 1 ML CARP\\VIAL IV PRN (01:10)
[2023-01-11] MEDS ORDERED: CARBOHYDRATES FOR HYPOGLYCEMIA PO PRN (01:10)
[2023-01-11] MEDS ORDERED: GLUCOSE 40% GEL 15 GM TUBE PO PRN (01:10)
[2023-01-11] MEDS ORDERED: DEXTROSE 50% 50 ML SYRINGE IV PRN (01:10)
[2023-01-11] MEDS ORDERED: GLUCAGON FOR INJ 1 MG VIAL SQ PRN (01:10)
[2023-01-11] MEDS ORDERED: ONDANSETRON INJ 2 MG/ML 2 ML VIAL IV PRN (01:10)
[2023-01-11] MEDS ORDERED: GLUCOSE 10 TAB/TUBE PO PRN (01:10)
[2023-01-11 01:28] LABS: Magnesium 2.1 mg/dl (1.7-2.4)
[2023-01-11 01:33] LABS: Phosphorus 4.1 mg/dl (2.5-4.9)
[2023-01-11] MEDS ORDERED: Nursing to Pharmacy Communication SCH ×2 (01:45→13:15)
[2023-01-11] MEDS: INSULIN ASPART PER UNIT CHARGE SC SCH ×2 (05:42→12:35)
[2023-01-11 06:54] LABS: Hematocrit (blood only) 38.5 % (42.0-52.0); Hemoglobin 13.9 g/dl (14.0-18.0); Mean Corpuscular Hemoglobin 31.4 pg (25.0-34.0); Mean Corpuscular Hgb Conc 36.1 g/dL (32.0-36.0); Mean Corpuscular Volume 86.9 fL (80.0-100.0); Mean Platelet Volume 8.9 fL (9.4-12.4); Platelet Count 194 K/uL (130-400); RDW Coefficient of Variation 11.7 % (11.5-14.5); RDW Standard Deviation 37.2 fL (36.4-46.3); Red Blood Count 4.43 M/uL (4.70-6.10); White Blood Count 5.68 K/ul (4.8-10.8)
[2023-01-11 07:11] LABS: Albumin Level 3.8 gm/dl (3.4-5.0); BUN Creatinine Ratio 15.2 (10-20); Bilirubin Direct 0.3 mg/dl (0-0.2); Bilirubin,Total 1.7 mg/dl (0.2-1.0); Calcium 8.6 mg/dl (8.6-10.3); Creatinine Clr Calc Pharmacy 143.5 ml/min; Est GFR (African American) 135.8 ml/min; Est GFR (Non-African American) 117.2 ml/min; Potassium 3.9 mmol/L (3.5-5.1); Total Protein 6.1 gm/dl (6.0-8.3)
[2023-01-11] MEDS ORDERED: INSULIN ASPART PER UNIT CHARGE SC SCH ×2 (07:30→16:30)
[2023-01-11 08:25] LABS: Estimated Average Glucose 126 mg/dl
[2023-01-11] MEDS ORDERED: LANTUS PER UNIT CHARGE SQ SCH (09:00)
--- NOTE | 2023-01-11 10:31 | Gastrointestinal Consultation ---
Date of Consultation January 11, 2023 Assessment & Plan (1) Lower abdominal pain: CT with questionable enteritis vs developing SBO. Patient's symptoms have resolved at present. -Can obtain KUB today for reassessment, though clinically patient is remarkably improved. -Diet as tolerated. -Can follow-up as an outpatient. History of Present Illness Reason for Consultation: Enteritis vs SBO Attending Physician: Tiburcio Mike History of Present Illness Patient is a 32 yo male with PMH of DM1 who presented to the hospital after de veloping acute abdominal pain in the lower abdomen yesterday. This pain radiated to his back. He could not get the pain to resolve at home, so he presented to the ED. In the ED he was found to have a CT abdomen/pelvis without oral contrast that demonstrated the following: Mild fluid-filled small bowel distended up to 2.8 cm, concerning for mild enteritis/ileus. Early/partial small bowel destruction cannot be excluded, consider repeat exam if symptoms worsen or persist. Patient denies any associated symptoms of diarrhea, constipation, or GI bleeding. No recent viral illnesses. No fever/chills. Today, his symptoms have resolved entirely. He is walking the hallways in the hospital. Labs indicated a chronically elevated T bili of 1.9 with a D bili of 0.3. No known history of liver disease. He denies family history of GI abnormalities/IBD/GI malignancy. He offers no further complaints at the time of my visit. Allergies Allergy/AdvReac Type Severity Reaction Status Date / Time No Known Allergies Allergy Verified 01/10/23 19:23 Home Medications Medication Instructions Recorded Confirmed Type acetone (urine) test (Ketone Urine #50 ea 04/02/20 09/15/22 Rx Test strips) lancets 30 gauge (OneTouch Delica #100 ea 03/25/21 09/15/22 Rx Lancets) One Touch Verio Glucometer #1 ea 10/15/21 09/15/22 Rx insulin glargine 100 unit/mL (3 25 unit (0.25 mL) subcut BID #45 mL 05/20/22 01/10/23 Rx mL) subcutaneous pen (Lantus Solostar U-100 Insulin) insulin lispro 100 unit/mL See Rx Instructions .Route 07/30/22 01/10/23 Rx subcutaneous pen (Humalog KwikPen .COMPLEX #75 mL (U-100) Insulin) pen needle, diabetic 32 gauge x #100 ea 08/04/22 09/15/22 Rx 1/4" (BD Ultra-Fine Micro Pen Needle) blood sugar diagnostic (OneTouch #300 strips 09/17/22 Rx Verio test strips) Patient History Medical History Right upper extremity numbness Type 1 diabetes Diagnosed age 12 Surgical History S/P wisdom tooth extraction Family History Grandfather (Maternal) Myocardial infarction Grandfather (Paternal) Myocardial infarction Diabetes Grandmother (Maternal) Ovarian cancer Uncle Prostate cancer Diabetes Mother Depression Hypertension Kidney stones Fibromyalgia Sister Depression Father Hypertension Grandmother (Paternal) Diabetes Denies family history of Breast cancer Colorectal cancer Social History Smoking Status: Never smoker Tobacco Type: Cigarettes Age Started Using Tobacco: 14; Cigarettes Per Day: 1-2 A WEEK; Second Hand Exposure: Yes; Do You Dip or Chew Tobacco: No; Hx Alcohol Use: No Hx Substance Use: Yes Prescribed Medications: Marijuana Last Used Substance: Hours (ago) Preferred Language: Qatari Communication Ability: Effective Visual Impairment: No Limitations Hearing Ability: Normal Supervisor Hot Dip Tinning Required: No Beliefs That Will Affect Care: None marital status: Single Current Living Situation: Spouse Current Living Situation Comment: W/GIRLFRIEND current occupational status: employed 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 [employer] Feels Safe at Home: Yes Childhood Exposure to Second-Hand Smoke: Yes Diet: regular Dental Care, Regularly: No Physical Activity Frequency: Does not Exercise Seatbelt Use: always Sunscreen Use: No Assistive Devices: None Review of Systems Constitutional: no fever and no chills Respiratory: no cough and no dyspnea Cardiovascular: no chest pain Gastrointestinal: no abdominal pain, no change in stools, no diarrhea/loose stools and no blood in stools Physical Exam Constitutional: well developed Respiratory: normal respiratory effort Cardiovascular: Rate/Rhythm: regular rate Gastrointestinal (Abdomen): normal bowel sounds, soft, nontender, no hepatosplenomegaly Musculoskeletal: Head/Neck/Chest: normocephalic Psychiatric: Orientation: alert and oriented x 3 Results & Data Vital Signs (Past 12 Hours) Vital Signs Temp Pulse Pulse Resp BP BP Pulse Ox 01/11/23 07:23 36.5 C 68 16 126/79 96 01/11/23 00:57 36.5 C 65 16 146/93 H 96 01/11/23 00:30 65 16 123/80 94 01/11/23 00:00 64 18 126/78 94 01/10/23 23:30 65 8 L 01/10/23 23:00 70 18 122/71 01/10/23 22:30 66 10 L 123/75 O2 Del Method 01/11/23 07:23 Room Air 01/11/23 00:57 Room Air 01/11/23 00:30 Room Air 01/11/23 00:00 Room Air 01/10/23 23:30 01/10/23 23:00 01/10/23 22:30 PG Care Time/CCT Total # of Minutes Spent Total Time Spent with Patient: Total time spent is greater than 50% in coordination of care (as documented) at patient's floor/unit and/or counseling patient: Coding Level of Care Code 83624 IN/OBS CONSULT LVL 3,45M Diagnoses Lower abdominal pain R10.30
--- NOTE | 2023-01-11 10:40 | Surgery Progress Note ---
Date of Service January 11, 2023 Assessment & Plan (1) Lower abdominal pain: (2) Vomiting: (3) Enteritis: Plan Pt was admitted on 01/10/23 with c/o abdominal pain after eating cereal with milk and started vomiting Patient is feeling much better today than yesterday Denies nausea, vomiting, abdominal pain Passing flatus WBC 5.6 afebrile, VSS Patient has been NPO we can advance diet to clears and if he tolerates them may advance further. Patient requesting to leave this afternoon, if tolerates diet and he may leave from a surgical stand point. Admission and Anticipated Discharge Date Admission Date: January 10, 2023 Supervising Physician Co-Signing Physician Notes This patient was seen and examined with the surgical PA. I agree with the plan. Subjective Patient reports he is feeling better than yesterday. Denies abdominal pain and nausea Passing flatus Requesting to go home tonight for a work meeting Review of Systems Constitutional: no fever and no chills Gastrointestinal: no abdominal pain, no nausea and no vomiting Physical Exam Constitutional: well developed, well nourished, cooperative and comfortable; no acute distress Respiratory: normal respiratory effort; no respiratory distress Cardiovascular: Rate/Rhythm: regular rate Gastrointestinal (Abdomen): Percussion/Palpation: abdomen soft; abdomen nontender and no guarding Results & Data Vital Signs (Past 12 Hours) Vital Signs Temp Pulse Pulse Resp BP BP Pulse Ox 01/11/23 07:23 97.7 F 68 16 126/79 96 01/11/23 00:57 97.7 F 65 16 146/93 H 96 01/11/23 00:30 65 16 123/80 94 01/11/23 00:00 64 18 126/78 94 01/10/23 23:30 65 8 L 01/10/23 23:00 70 18 122/71 01/10/23 22:30 66 10 L 123/75 O2 Del Method 01/11/23 07:23 Room Air 01/11/23 00:57 Room Air 01/11/23 00:30 Room Air 01/11/23 00:00 Room Air 01/10/23 23:30 01/10/23 23:00 01/10/23 22:30 PG Care Time/CCT Total # of Minutes Spent Total Time Spent with Patient: Total time spent is greater than 50% in coordination of care (as documented) at patient's floor/unit and/or counseling patient: Coding Level of Care Code 84353 SUB INP/OBS CARE /25MIN Diagnoses Lower abdominal pain R10.30 Vomiting R11.2 Nausea presence: with nausea Vomiting type: unspecified Enteritis K52.9 (2) Vomiting Nausea presence: with nausea Vomiting type: unspecified Qualified Code(s): R11.2 - Nausea with vomiting, unspecified
--- NOTE | 2023-01-11 12:56 | XRay Report ---
[facility] CLINICAL HISTORY: Abnormal CT COMPARISON STUDY: CT of the abdomen and pelvis January 10, 2023. FINDINGS: The bowel gas pattern is normal. Moderate amount of stool within the colon and rectum is pr esent. There are no urinary calculi. Pelvic calcifications represent phleboliths. IMPRESSION: No evidence for a bowel obstruction. ACT 112: Negative or not required by law. Electronically signed by: Aaron Berman M.D. 01/11/2023 12:54 PM
--- NOTE | 2023-01-11 16:02 | Discharge Summary ---
Date of Service January 11, 2023 Admission HPI Per Admitting Provider Travis Lezama is a 32yo male with well controlled DM-I presenting with abdominal pain. Patient woken this morning and developed fairly severe abdominal pain after having some cereal for breakfast. He had some nausea and non-bloody/non-bilious emesis as well which made his abdominal pain feel slightly better. The pain persisted throughout the day, coming intermittently. He passed some gas this morning but does not recall if he has passed gas since. He had a normal bowel movement this AM. Patient denies fever, chills, chest pain, cough, SOB. Denies diarrhea. Denies urinary complaints. No dietary changes. No sick contacts or contacts with similar symptoms. No additional complaints at this time. In the ER the patient is afebrile, HD stable, NAD. Resting comfortably. Abdominal pain slightly improved. He was evaluated by General Surgery for possible SBO. ER Course: Pepcid 20mg Toradol 15mg NSS x 1500mL Zofran Principal Diagnosis lower abdominal pain: enteritis Discharge Exam General: patient resting comfortably, NAD, non-toxic in appearance, AA&O x 4 Skin: warm, dry, intact, no rashes or lesions HEENT: NC/AT, PERRL, EOMI, anicteric sclera, conjunctiva without injection, external ear normal to inspection and nontender, nares patent, moist mucus membranes, dentition intact, no oropharyngeal lesions, neck supple, trachea midline, no LAD, no thyromegaly, no JVD Heart: +S1/S2, regular, no m/r/g Lungs: equal air entry bilaterally, no rales/rhonchi/wheezes Abd: +BS hypoactive, soft, non-distended, mildly tender with deep palpation, no rebound/guarding/peritonitis, no masses/organomegaly/ascites Ext: warm, 2+ pulses in UE/LE bilaterally, no clubbing/cyanosis or edema Neuro: nonfocal, patient AA&O x 4, speech intact, no facial droop, moving all extremities on command with equal strength 5/5 Discharge Data Allergies Allergy/AdvReac Type Severity Reaction Status Date / Time No Known Allergies Allergy Verified 01/10/23 19:23 Consultations 01/10/23 21:31 ED Decision to Admit Stat 01/10/23 21:44 Consult General Surgery Stat 01/11/23 08:08 Consult Gastroenterology Routine Ordered Studies 01/10/23 19:31 CT Abd and Pelvis [CT abd pelvis IV con only] Stat Hospital Course (1) Lower abdominal pain: 32yo male with history of well controlled DM presenting with one day of abdominal pain and nausea. No prior abdominal surgeries. He is afebrile, HD stable and non-toxic in appearance. Labs are largely unrema rkable to include normal WBC count of 8.73. Chronic elevation of Tbili=1.9 (near baseline) otherwise normal LFTs. CT of the abomen as above with possible SBO vs enteritis. -Admit to medical CT with questionable enteritis vs developing SBO. Patient's symptoms have resolved at present. -C KUB today for reassessment\\ was negative. As patient has remarkably improved, will discharge -Diet as tolerated. -Can follow-up as an outpatient with GI. -Appreciate General Surgery assistance and GI's assistance (2) Type 1 diabetes: Overall well controlled. Last HgbA1C from 11/14/21=6.9. Patient is compliant with Glargine 25u BID and ISS. -Decrease Glargine to 12u BID while NPO -Novolog sliding scale with CF 25, CR 5 -Goal blood sugar 110 - 140 Of note, patient states that he has an episodes 3-4 times monthly which he wakes up feeling nauseated and has to vomit. After he vomits he feels better and is able to go back to sleep. Uncertain if its related to specific type of food or timing of meals. ?GERD vs Gastroparesis to be considered Total Time Total Time Spent Total Time Spent (In Minutes): 40 Discharge Plan Discharge Items Patient Disposition: Home - Self-Care Reason For Visit: ABDOMINAL PAIN, POSSIBLE SBO Discharge Diagnosis: abdominal pain Condition on Discharge: Good Activity: Resume your previous activity Non-emergency contact: Primary Care Provider Call non-emergency contact if: you have any medication questions Follow-up/Referrals: Tonny Bell DO [Primary Care Provider] - Diet: Carb Count or DM1 and Low Fiber Addtl Attending Provider Instructions: recommend followup with PCP in 1-2 weeks. May need a followup with GI. A low fiber diet is typically recommended for individuals with certain medical conditions or as a temporary measure to relieve digestive symptoms. Here is some basic information about a low fiber diet: 1. Purpose: A low fiber diet limits the intake of foods high in dietary fiber to reduce the workload on the digestive system and ease symptoms like diarrhea, abdominal pain, or cramping. 2. Foods to limit or avoid: - Whole grains (e.g., whole wheat, whole oats, brown rice) - Legumes (e.g., lentils, beans, chickpeas) - Nuts and seeds - Raw fruits and vegetables (except for some cooked or peeled options) - High-fiber cereals or breads 3. Foods generally allowed: - Refined grains (e.g., white bread, white rice, refined cereals) - Cooked and peeled fruits and vegetables (e.g., applesauce, canned fruits, cooked carrots) - Lean meats, poultry, and fish - Dairy products (unless lactose intolerant) - Eggs 4. Cooking and preparation methods: - Choose peeled or cooked fruits and vegetables instead of raw ones. - Remove seeds and skin from fruits and vegetables. - Opt for refined grain products instead of whole grains. - Cook or soak legumes to reduce their fiber content. It's important to note that a low fiber diet should only be followed under the guidance of a healthcare professional, as it is not suitable for long-term use. They can provide personalized recommendations based on your specific needs and condition. Pending Studies at Discharge: No Stand-Alone Forms: [facility], Smoking Cessation Medications and DC Order Prescriptions: Continued (DME) Ketone Urine Test Strip See Rx Instructions .ROUTE .MEDSUPPLY Qty: 50 5RF Rx Instructions: As directed (DME) lancets [OneTouch Delica Lancets] 30 gauge misc See Rx Instructions .Route Qty: 100 1RF Rx Instructions: test 3 times daily or as directed (DME) One Touch Verio Glucometer See Rx Instructions .Route .MEDSUPPLY Qty: 1 0RF Rx Instructions: Test 3 times daily insulin glargine [Lantus Solostar U-100 Insulin] 100 unit/mL (3 mL) insulin pen 25 unit subcut BID Qty: 45 1RF insulin lispro [Humalog KwikPen Insulin] 100 unit/mL insulin pen See Rx Instructions .ROUTE .COMPLEX MDD 70 U Qty: 75 1RF Dose Instruction: INJECT 70 UNITS (0.7 ML) SUBCUTANEOUSLY DAILY Rx Instructions: INJECT 70 UNITS (0.7 ML) SUBCUTANEOUSLY DAILY (Divided doses based on CHO Ratio and CF before meals) (DME) pen needle, diabetic [BD Ultra-Fine Micro Pen Needle] 32 gauge x 1/4" needle See Rx Instructions .Route Qty: 100 1RF Rx Instructions: USE TO ADMINISTER INSULIN 4 X DAILY OR DIRECTED (DME) OneTouch Verio test strips Strip See Rx Instructions .ROUTE .COMPLEX Qty: 300 12RF Dose Instruction: FOR TYPE I DIABETES TEST 3 TIMES PER DAY. Rx Instructions: FOR TYPE I DIABETES TEST 3 TIMES PER DAY. Discharge Orders: Discharge Order (Routine); Ordered 01/11/23 Ordered By: Tiburcio Boland/Other Patient Handouts: Small Bowel Obstruction, Managing Type 1 Diabetes Admission Data Admit Date/Time: 01/10/23 22:09 Attending Provider: Tiburcio Mike Admit Provider: Ruby Montano Primary Care Provider: Tonny Bell Other Providers: Ruby Montano ; Maine Pérez ; Ronan Daniels ; Pasquale Brower ; Mayra Blanc ; Romelia Darnell ; Lisa Mullen ; Carol Chatterjee ; Amol Carrington ; Mert Estevez ; Ben Loaiza ; Shane Cano ; Shai Gomes ; Faustina Diaz ; Dionna Ross ; Shanda Bradley ; Sarah Aparicio ; Sona Foote ; Travis Sarkar ; Cody Mosley ; Mary Stevenson ; Elizabeth Almeida Jr Other Interventions: Discharge Summary Assessment (RN) Last Done: 01/11/23 16:10 Coding Level of Care Code 65225 INP/OBS DISCH >30 MIN Diagnoses Lower abdominal pain R10.30 Type 1 diabetes E10.9
== END 2023-01-11 16:31 | disposition home or self-care (01) ==
LOC: ED 18:02 → SUATTDRO 22:09 → INTOOBSV 22:09 → 3W 22:09